=== PATIENT | male | born 1930 | race Caucasian/White ===

== ENCOUNTER 2018-08-23 08:09 | Emergency (ER) | payer MEDICARE ==
--- OUTSIDE RECORDS SUMMARY | 2018-08-23 08:20 | XMS REPORT | Continuity of Care Document ---
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 David Garcia MD Primary Care Physician Unavailable Payers Type Date Identification Numbers Payment Provider Subscriber Effective: Policy Number: [id number] [employer] Options Maximo Berrios JR 2007 Medicare PayID: [id number] [address] [address] [place] [address] Advance Directives Description No Information Available Problems Date Description Provider Status Onset: 06/02/2011 Coronary arteriosclerosis Todd Field M.D., Active FACC Onset: 06/02/2011 Hyperlipidemia Todd Field M.D., Active FACC Onset: 06/02/2011 Benign essential hypertension Todd Field M.D., Active FACC Onset: 06/02/2011 Preoperative cardiovascular Todd Field M.D., Active examination FACC Onset: 06/02/2011 Conduction disorder of the heart Todd Field M.D. , Active FACC Onset: 11/03/2011 Low blood pressure Todd Field M.D., Active FACC Onset: 11/03/2011 Peripheral vascular disease Todd Field M.D., Active FACC Onset: 11/08/2012 Left bundle branch block Todd Field M.D., Active FACC Onset: 06/26/2014 Atrial flutter Todd Field M.D., Active FACC Onset: 07/11/2014 Primary cardiomyopathy Todd Field M.D., Active FACC Onset: 07/11/2014 Mitral valve disorder Todd Field M.D., Active FACC Onset: 07/11/2014 Aneurysm of thoracic aorta Todd Field M.D., Active FACC Onset: 09/12/2014 Impaired renal function disorder Todd Field M.D. 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 Social History Type Date Description Comments Sex Unknown Marital Status Lives With Pamela Diet 2000mg Sodium, Low Fat, Low Cholesterol Occupation Retired Tobacco Use Start: Unknown End: Quit after smoking many Unknown years. Smoking Status Reviewed: 04/24/18 Quit after smoking many years. ETOH Use Rarely consumes alcohol Tobacco Use Start: Unknown Patient is a current smoker, smokes every day Exercise Type/Frequency Does not exercise Allergies, Adverse Reactions, Alerts Date Description Reaction Status Severity Comments 04/20/2011 NKDA Active 09/11/2009 NKDA Inactive 04/06/2010 Metoprolol Inactive severe bradycardia Medications Medication Date Status Form Strength Qnty SIG Indications Ordering Provider Eliquis 07/27/ Active Tablets 5mg 60tab 1 tab by I42.0 Krishan, 2017 s mouth twice Lynsey a day Bran MSN, MACHINE ICER Entresto 03/09/ Active Tablets 24-26mg 180ta Take One I42.0 Rashida 2016 bs Tablet By Todd Mouth Twice M., MLyndaDLynda, A Day [facility] Simvastatin 07/04/ Active Tablets 20mg 90tab Take One Rashida 2013 s Tablet By Todd Mouth Every M., MLyndaD., Day [facility] Proair HFA / Active Aerosol 108(90Bas 1unit 2 puffs q4h Unknown 0000 e) s prn mcg/Act Anoro Ellipta / Active Aerosol 62.5-25mc take one Unknown 0000 g/Inh puff once daily. Albuterol / Active Nebulizer (2.5mg/3M Use 1 Vial Unknown Sulfate 0000 L) 0.083% Via Nebulizer Every 4 Hours as Needed Pantoprazole / Active Tablets DR 40mg Take One Unknown Sodium 0000 Tablet By Mouth Twice A Day For 1 Week Then Once Daily Furosemide / Active Tablets 20mg Take Two Unknown 0000 Tablets By Mouth Every Day Vitamin B-12 / Active Liquid 1000mcg/1 15 Unknown 0000 5ML milliliters by mouth every day Amiodarone HCL 11/01/ Hx Tablets 200mg 90tab 1 by mouth I42.0 Rashida 2017 - s every day , Todd 04/24/ Daisy Mejia, 2017 [facility] Ativan 09/26/ Hx Tablets 0.5mg 30tab 1 tablet F51.02 Krishan, 2017 s under the Lynsey tongue as Bran needed at , MSN, night as CATHERINE needed for sleep. Prednisone 03/09/ Hx Tablets 20mg 7tabs 1 tab by M54.6 Krishan 2016 mouth every Lynsey day Bran , MARIOLA, MACHINE ICER Entresto 07/16/ Hx Tablets 24-26mg 180ta take one I42.0 Rashida 2015 - bs tablet by Todd 03/09/ mouth twice M. MAlva, 2016 a day [facility] Ativan 12/16/ Hx Tablets 1mg 30tab 1 tab by F51.02 Krishan, 2015 s mouth every Lynsey night as Bran needed , MSN, MACHINE ICER Furosemide 08/11/ Hx Tablets 40mg 90tab 1 by mouth I50.21 Nickerson, 2014 s everyday as Lynsey needed -- to Bran be taken , MSN, with MACHINE ICER potassium 20meq. Klor-Con M20 08/11/ Hx Tablets ER 20Meq 90tab 1 by mouth I50.21 Nickerson, 2014 s every day Lynseymert Sotomayor , MSN, MACHINE ICER Ativan 08/11/ Hx Tablets 0.5mg 30tab 1 tab by F51.02 Nickerson, 2014 - s mouth every Lynsey 12/16/ night as Bran 2015 needed , MSN, MACHINE ICER Amiodarone HCL 09/12/ Hx Tablets 200mg 30tab 1 by mouth R55 Rashida 2014 - s every day , Todd 05/19Shauna Mejia M.D., 2014 [facility] I48.92 Amiodarone HCL 07/04/2014 Hx Tablets 200mg 90tabs 2 tablets Rashida, by mouth Todd Mejia, every day Braulio.DLynda, [facility] for 7 days and then 1 tablet per day Metoprolol 09/24/2009 Hx Tablets 25mg 90tabs 1 by mouth I25 Rashida, Tartrate every .10 Todd Mejia, night at M.DLynda, [facility] bedtime Lisinopril-[place] Hx Tablets 10-12.5m 1/2 tab po Rashida chlorothiazide g qd Todd Mejia M.D., [facility] Nitroglycerin Hx Tablets Sub 0.4mg 25tabs 1 tab prn Todd Field M.D., [facility] Singulair Hx Tablets 10mg 1 po qd Todd Field M.D., [facility] Aspirin Hx Tablets 81mg 1 po qd Todd Field M.D., [facility] Flovent HFA Hx Aerosol 110mcg/A 1 puff bid Rashida, maggie Mejia M.D., [facility] Albuterol Hx Nebulizer 17G prn Davidenko, Sulfate Todd Mejia M.D., [facility] Simvastatin - Hx Tablets 40mg 1 po qd Dandreentushar, 07/04/2014 Todd Mejia M.D., [facility] Symbicort Hx Aerosol 160-4.5m 2 puff bid Nickerson, Lynsey cg/Act Bran, MSN, MACHINE ICER Spiriva Hx Capsules 18mcg 1 po qd Nickerson, Lynsey Handihaler Bran, MSN, MACHINE ICER Combivent Hx Aerosol 103-18mc 2 puffs Nickerson, Lynsey g/Act prn Bran, MSN, MACHINE ICER Ventolin HFA Hx Aerosol 108(90Ba prn Unknown se) mcg/ac Advair HFA Hx Aerosol 45-21mcg 2 puff bid Unknown /Act Metoprolol Hx Tablets 25mg 30tabs 1/2 po bid Unknown Tartrate Albuterol Hx Nebulizer (2.5mg/3 2puffs q2h Unknown Sulfate ML) prn 0.083% Bisacodyl Hx Suppository 10mg prn Unknown Vitamin D-3 Hx Tablets 2000Unit po qd Unknown Colace Hx Capsules 100mg 60caps 1 po bid Unknown Hydrocodone/Acet Hx Tablets 5-325mg 60tabs 2 tabs po Unknown aminophen q6h prn Singulair Hx Tablets 10mg 1 po qd Unknown Vitamin B12 Hx Tablets ER 1000mcg po qd Unknown Lisinopril/[place] - Hx Tablets 10-12.5m 30tabs 1/2 tab po 401 Davidenko, chlorothiazide 08/02/2011 g qd .1 Todd Mejia M.D., [facility] 458.9 Proair HFA Hx Aerosol 108(90Base) 2 puffs Unknown mcg/ac q4h prn Plavix - Hx Tablets 75mg 90ta take one Rashida, 07/02/2015 bs tablet by abbi Sotelo M.D., [facility] every day Advair Diskus Hx Aerosol 100-50mcg/Dose 2 puff Unknown twice a day Lisinopril Hx Tablets 5mg 90ta 1 by mouth Unknown bs every day Aspirin Adult Hx Tablets DR 81mg 1 by mouth Unknown Low Dose every day Pantoprazole Hx Tablets DR 40mg 1 by mouth Unknown Sodium every day Lasix Hx Tablets 20mg 2 by mouth Unknown every day Immunizations Description No Information Available Vital Signs Date Vital Result Comment 08/16/2018 10:38am BP Systolic Sitting Left Arm 112 mmHg BP Diastolic Sitting Left Arm 61 mmHg Heart Rate 86 /min Respiratory Rate 19 /min Height 70 inches 5'10" per patient Weight 197.00 lb BMI (Body Mass Index) 28.3 kg/m2 BSA (Body Surface Area) 2.07 m2 [place] body weight in kilograms 75 kg O2 % BldC Oximetry 97 % 05/30/2018 11:37am BP Systolic Sitting Left Arm 100 mmHg BP Diastolic Sitting Left Arm 84 mmHg Heart Rate 79 /min Respiratory Rate 20 /min Weight 197.00 lb O2 % BldC Oximetry 93 % 04/24/2018 11:33am BP Systolic Sitting Left Arm 100 mmHg BP Diastolic Sitting Left Arm 60 mmHg Heart Rate 82 /min Respiratory Rate 22 /min Weight 200.00 lb O2 % BldC Oximetry 92 % 03/24/2018 8:37am Heart Rate 70 /min Weight 203.00 lb O2 % BldC Oximetry 97 % 09/26/2017 1:08pm BP Systolic Sitting Left Arm 128 mmHg BP Diastolic Sitting Left Arm 72 mmHg Heart Rate 75 /min Respiratory Rate 16 /min Height 70 inches 5'10" Weight 202.00 lb BMI (Body Mass Index) 29.0 kg/m2 BSA (Body Surface Area) 2.10 m2 [place] body weight in kilograms 75 kg 05/25/2017 2:29pm BP Systolic Sitting Left Arm 132 mmHg BP Diastolic Sitting Left Arm 60 mmHg Heart Rate 83 /min Respiratory Rate 20 /min Height 70 inches 5'10" Weight 214.00 lb BMI (Body Mass Index) 30.7 kg/m2 BSA (Body Surface Area) 2.15 m2 [place] body weight in kilograms 75 kg O2 % BldC Oximetry 95 % 04/21/2017 2:15pm BP Systolic Sitting Right Arm 118 mmHg BP Diastolic Sitting Right Arm 80 mmHg BP Systolic Sitting Left Arm 114 mmHg BP Diastolic Sitting Left Arm 82 mmHg Heart Rate 80 /min Respiratory Rate 16 /min Height 70 inches 5'10" Weight 214.00 lb BMI (Body Mass Index) 30.7 kg/m2 BSA (Body Surface Area) 2.15 m2 [place] body weight in kilograms 75 kg 03/09/2017 9:50am BP Systolic Sitting Left Arm 90 mmHg BP Diastolic Sitting Left Arm 64 mmHg Heart Rate 80 /min Respiratory Rate 22 /min Height 70 inches 5'10" Weight 220.00 lb BMI (Body Mass Index) 31.6 kg/m2 BSA (Body Surface Area) 2.17 m2 [place] body weight in kilograms 75 kg 08/06/2016 9:56am BP Systolic Sitting Left Arm 110 mmHg BP Diastolic Sitting Left Arm 48 mmHg Heart Rate 62 /min Respiratory Rate 18 /min Height 70 inches 5'10" Weight 233.00 lb BMI (Body Mass Index) 33.4 kg/m2 BSA (Body Surface Area) 2.23 m2 07/16/2016 11:24am BP Systolic Sitting Left Arm 122 mmHg BP Diastolic Sitting Left Arm 75 mmHg Heart Rate 76 /min Respiratory Rate 18 /min Height 70 inches 5'10" Weight 230.00 lb BMI (Body Mass Index) 33.0 kg/m2 BSA (Body Surface Area) 2.22 m2 03/18/2016 9:32am BP Systolic Sitting Left Arm 118 mmHg BP Diastolic Sitting Left Arm 66 mmHg Heart Rate 74 /min Height 70 inches 5'10" Weight 225.00 lb BMI (Body Mass Index) 32.3 kg/m2 BSA (Body Surface Area) 2.19 m2 [place] body weight in kilograms 75 kg 12/17/2015 9:10am BP Systolic Sitting Left Arm 92 mmHg BP Diastolic Sitting Left Arm 60 mmHg Heart Rate 80 /min Respiratory Rate 20 /min Height 70 inches 5'10" Weight 225.00 lb BMI (Body Mass Index) 32.3 kg/m2 BSA (Body Surface Area) 2.19 m2 08/11/2015 12:57pm BP Systolic Sitting Left Arm 122 mmHg BP Diastolic Sitting Left Arm 74 mmHg Heart Rate 80 /min Respiratory Rate 16 /min Height 70 inches 5'10" Weight 226.00 lb BMI (Body Mass Index) 32.4 kg/m2 BSA (Body Surface Area) 2.20 m2 07/18/2015 1:17pm BP Systolic Sitting Right Arm 140 mmHg BP Diastolic Sitting Right Arm 82 mmHg Heart Rate 71 /min Respiratory Rate 16 /min Height 70 inches 5'10" Weight 225.00 lb BMI (Body Mass Index) 32.3 kg/m2 BSA (Body Surface Area) 2.19 m2 05/19/2015 11:24am BP Systolic Sitting Right Arm 130 mmHg BP Diastolic Sitting Right Arm 80 mmHg Heart Rate 72 /min Respiratory Rate 18 /min Height 70 inches 5'10" Weight 227.00 lb BMI (Body Mass Index) 32.6 kg/m2 BSA (Body Surface Area) 2.20 m2 04/11/2015 11:00am BP Systolic Sitting Right Arm 106 mmHg BP Diastolic Sitting Right Arm 82 mmHg Heart Rate 76 /min Respiratory Rate 16 /min Height 70 inches 5'10" Weight 227.00 lb BMI (Body Mass Index) 32.6 kg/m2 BSA (Body Surface Area) 2.20 m2 04/04/2015 9:37am BP Systolic Sitting Right Arm 122 mmHg BP Diastolic Sitting Right Arm 80 mmHg Heart Rate 66 /min Respiratory Rate 20 /min Height 70 inches 5'10" Weight 230.00 lb BMI (Body Mass Index) 33.0 kg/m2 BSA (Body Surface Area) 2.22 m2 11/28/2014 9:17am BP Systolic Sitting Right Arm 148 mmHg BP Diastolic Sitting Right Arm 80 mmHg Heart Rate 68 /min Respiratory Rate 24 /min Height 70 inches 5'10" Weight 240.00 lb BMI (Body Mass Index) 34.4 kg/m2 BSA (Body Surface Area) 2.26 m2 09/12/2014 9:20am BP Systolic Sitting Right Arm 140 mmHg BP Diastolic Sitting Right Arm 60 mmHg Heart Rate 60 /min Respiratory Rate 24 /min Height 70 inches 5'10" Weight 239.00 lb BMI (Body Mass Index) 34.3 kg/m2 BSA (Body Surface Area) 2.25 m2 07/11/2014 3:02pm BP Systolic Sitting Right Arm 116 mmHg BP Diastolic Sitting Right Arm 72 mmHg Heart Rate 78 /min Respiratory Rate 16 /min Height 69 inches 5'9" Weight 240.00 lb BMI (Body Mass Index) 35.4 kg/m2 BSA (Body Surface Area) 2.23 m2 06/26/2014 2:28pm BP Systolic Sitting Right Arm 106 mmHg BP Diastolic Sitting Right Arm 68 mmHg Heart Rate 78 /min Respiratory Rate 18 /min Height 69 inches 5'9" Weight 241.00 lb BMI (Body Mass Index) 35.6 kg/m2 BSA (Body Surface Area) 2.24 m2 05/30/2014 3:39pm BP Systolic Sitting Right Arm 132 mmHg BP Diastolic Sitting Right Arm 82 mmHg Heart Rate 83 /min Respiratory Rate 16 /min Height 69 inches 5'9" Weight 243.00 lb BMI (Body Mass Index) 35.9 kg/m2 BSA (Body Surface Area) 2.24 m2 05/02/2013 11:25am BP Systolic Sitting Right Arm 166 mmHg BP Diastolic Sitting Right Arm 86 mmHg Heart Rate 60 /min Respiratory Rate 16 /min Height 69 inches 5'9" Weight 244.00 lb BMI (Body Mass Index) 36.0 kg/m2 BSA (Body Surface Area) 2.25 m2 11/08/2012 11:15am BP Systolic Sitting Right Arm 152 mmHg BP Diastolic Sitting Right Arm 90 mmHg Heart Rate 55 /min Respiratory Rate 20 /min Height 69 inches 5'9" Weight 246.00 lb BMI (Body Mass Index) 36.3 kg/m2 BSA (Body Surface Area) 2.26 m2 05/08/2012 8:41am BP Systolic Sitting Left Arm 118 mmHg BP Diastolic Sitting Left Arm 64 mmHg Heart Rate 54 /min Respiratory Rate 20 /min Height 69 inches 5'9" Weight 245.00 lb BMI (Body Mass Index) 36.2 kg/m2 11/03/2011 10:51am BP Systolic Sitting Right Arm 138 mmHg BP Diastolic Sitting Right Arm 86 mmHg Heart Rate 68 /min Respiratory Rate 20 /min Height 69 inches 5'9" Weight 246.00 lb BMI (Body Mass Index) 36.3 kg/m2 08/02/2011 1:06pm BP Systolic Sitting Right Arm 80 mmHg BP Diastolic Sitting Right Arm 54 mmHg Heart Rate 52 /min regular Respiratory Rate 20 /min Height 69 inches 5'9" Weight 247.00 lb BMI (Body Mass Index) 36.5 kg/m2 06/02/2011 2:37pm BP Systolic Sitting Right Arm 126 mmHg BP Diastolic Sitting Right Arm 66 mmHg Heart Rate 52 /min Respiratory Rate 18 /min Height 69 inches 5'9" Weight 258.00 lb BMI (Body Mass Index) 38.1 kg/m2 04/20/2011 10:49am BP Systolic Sitting Right Arm 126 mmHg BP Diastolic Sitting Right Arm 84 mmHg Heart Rate 72 /min regular Respiratory Rate 20 /min Height 69 inches 5'9" Weight 253.00 lb BMI (Body Mass Index) 37.4 kg/m2 10/06/2010 2:38pm BP Systolic Sitting Right Arm 118 mmHg BP Diastolic Sitting Right Arm 66 mmHg Heart Rate 62 /min Respiratory Rate 16 /min Height 69 inches 5'9" Weight 248.00 lb BMI (Body Mass Index) 36.6 kg/m2 04/06/2010 9:15am Heart Rate 76 /min Regular Respiratory Rate 18 /min Weight 238.00 lb 09/24/2009 11:37am Heart Rate 56 /min Irregular Respiratory Rate 16 /min Weight 247.00 lb Results Test Date Facility Test Result H/L Range Note Laboratory test 07/23/2016 [facility] Magnesium 2.1 mg/dL N 1.8-2.4 1 [address] [place] [address] [phone] Basic Metabolic 07/23/2016 [facility] Glucose 102 mg/dL N 74-106 Panel [address] [place] [address] [phone] BUN 23 mg/dL High 7-18 Creatinine 1.4 mg/dL High 0.6-1.3 Glom Filtration Rate, Estimate 51 mL/min N >60 If >60 mL/min N >60 2 BUN/Creat 16.4 ratio N Sodium 139 mmol/L N 136-145 Potassium 4.3 mmol/L N 3.5-5.1 Chloride 102 mmol/L N 98-107 Carbon Dioxide 32 mmol/L N 21-32 Anion Gap 5 mEq/L Low 8-16 Calcium 8.8 mg/dL N 8.5-10.1 CBC W/Automated Diff 12/17/2015 [facility] White Blood 3.5 K/uL 3.4-10.5 [address] [facility] [place] [address] [phone] Red Blood Count 4.88 M/uL 4.20-5.80 Hemoglobin 14.9 gm/dL 12.8-17.0 Hematocrit 45.0 % 38.0-48.0 Mean Cell Volume 92.2 fl 80.0-96.0 Mean Corpuscular HGB 30.5 pg 27.0-33.0 Mean Corpuscular HGB Conc 33.1 g/dL 31.7-36.0 Platelet Count 105 K/uL Low 150-400 Red Cell Distri Width SD 51.0 fl 36-51 Red Cell Distri Width %CV 15.6 % 11.6-15.8 Mean Platelet Volume 10.8 fL High 6.6-10.6 Neut% 59.4 % 33.0-73.0 Lymph % 31.1 % 17.0-56.0 Lee % 8.6 % 0.0-10.0 Eo% 0.9 % 0.0-5.0 Bas% 0.0 % Low 0.1-1.0 Neut# 2.08 K/uL 1.8-7.0 Lymph # 1.09 K/uL Low 1.8-7.0 Lee # 0.30 K/uL 0.0-0.8 Eos # 0.03 K/uL 0.0-0.5 Baso # 0.00 K/uL Low 0.1-0.2 Laboratory test 12/17/2015 [facility] Magnesium 2.5 mg/dL High 1.8-2.4 finding [address] [place] [address] [phone] Basic Metabolic 12/17/2015 [facility] Glucose 85 mg/dL 74-106 Panel [address] [place] [address] [phone] BUN 25 mg/dL High 7-18 Creatinine 1.4 mg/dL High 0.6-1.3 Glom Filtration Rate, Estimate 51 mL/min >60 If >60 mL/min >60 3 BUN/Creat 17.8 ratio Sodium 138 mmol/L 136-145 Potassium 4.2 mmol/L 3.5-5.1 Chloride 102 mmol/L 98-107 Carbon Dioxide 33 mmol/L High 21-32 Anion Gap 3 mEq/L Low 8-16 Calcium 9.6 mg/dL 8.5-10.1 Basic Metabolic Panel 08/12/2015 [facility] Glucose 94 mg/dL 74-106 [address] [place] [address] [phone] BUN 19 mg/dL High 7-18 Creatinine 1.4 mg/dL High 0.6-1.3 Glom Filtration Rate, Estimate 51 mL/min >60 If >60 mL/min >60 4 BUN/Creat 13.5 ratio Sodium 139 mmol/L 136-145 Potassium 4.2 mmol/L 3.5-5.1 Chloride 103 mmol/L 98-107 Carbon Dioxide 32 mmol/L 21-32 Anion Gap 4 mEq/L Low 8-16 Calcium 9.6 mg/dL 8.5-10.1 Laboratory test finding 08/12/2015 [facility] Magnesium 2.2 mg/dL 1.8-2.4 [address] [place] [address] [phone] TSH Reflex FT4 and/or FT3 1.81 uIU/mL 0.36-3.74 5 Basic Metabolic Panel 07/19/2015 [facility] Glucose 99 mg/dL 74-106 [address] [place] [address] [phone] BUN 19 mg/dL High 7-18 Creatinine 1.3 mg/dL 0.6-1.3 Glom Filtration Rate, Estimate 56 mL/min >60 If >60 mL/min >60 6 BUN/Creat 14.6 ratio Sodium 140 mmol/L 136-145 Potassium 3.9 mmol/L 3.5-5.1 Chloride 106 mmol/L 98-107 Carbon Dioxide 30 mmol/L 21-32 Anion Gap 4 mEq/L Low 8-16 Calcium 9.3 mg/dL 8.5-10.1 Laboratory test finding 07/19/2015 [facility] Magnesium 2.1 mg/dL 1.8-2.4 [address] [place] [address] [phone] Basic Metabolic Panel 05/10/2012 [facility] Glucose 91 mg/dL 76-115 [address] [place] [address] [phone] BUN 15 mg/dL 5-23 Creatinine 1.4 mg/dL 0.5-1.4 Glom Filtration Rate, Estimate 52 mL/min >60 If >60 mL/min >60 7 BUN/Creat 10.7 ratio Sodium 141 mmol/L 136-145 Potassium 4.1 mmol/L 3.5-5.1 Chloride 107 mmol/L 98-107 Carbon Dioxide 27 mEq/L 18-29 Anion Gap 11 mEq/L 8-16 Calcium 9.2 mg/dL 8.5-10.1 CBC W/Automated Diff 05/10/2012 [facility] White Blood 3.6 K/uL 3.4-10.[address] [place] [address] [phone] Red Blood Count 4.91 M/uL 4.20-5.80 Hemoglobin 15.2 gm/dL 12.8-17.0 Hematocrit 45.3 % 38.0-48.0 Mean Cell Volume 92.3 fl 80.0-96.0 Mean Corpuscular HGB 31.0 pg 27.0-33.0 Mean Corpuscular HGB Conc 33.6 g/dL 31.7-36.0 Platelet Count 135 K/uL Low 150-400 Red Cell Distri Width SD 46.2 fl 36-51 Red Cell Distri Width %CV 13.9 % 11.6-15.8 Mean Platelet Volume 10.7 fL High 6.6-10.6 Neut% 64.9 % 33.0-73.0 Lymph % 27.7 % 17.0-56.0 Lee % 6.0 % 0.0-10.0 Eo% 1.4 % 0.0-5.0 Bas% 0.0 % Low 0.1-1.0 Neut# 2.36 K/uL 1.8-7.0 Lymph # 1.01 K/uL Low 1.2-4.0 Lee # 0.22 K/uL 0.0-0.6 Eos # 0.05 K/uL 0.0-0.5 Baso # 0.00 K/uL Low 0.1-0.2 LDL Cholesterol 05/10/2012 [facility] Cholesterol 128 mg/dL 120-200 Profile [address] [place] [address] [phone] Triglycerides 123 mg/dL 16-231 HDL Cholesterol 37 mg/dL 29-83 LDL-Cholesterol 66 mg/dL 62-185 Liver Function Tests 05/10/2012 [facility] Total Protein 7.3 g/dL 6.3-8.0 [address] [place] [address] [phone] Albumin 3.8 g/dL 3.5-5.0 Globulin 3.5 g/dL 1.9-4.3 Alb/Glob 1.1 ratio Bilirubin,Total 0.6 mg/dL 0.2-1.2 Bilirubin,Direct 0.2 mg/dL 0.1-0.4 Bilirubin,Indirect 0.4 mg/dL 0.0-0.9 Sgot/Ast 13 U/L Low 16-40 SGPT/Alt 21 U/L Low 30-65 Alkaline Phosphatase 48 U/L Low 50-136 Laboratory test 05/10/2012 [facility] Thyroid Stim 2.02 uIU/mL 0.49-4.67 finding [address] [place] [address] [phone] 1 I42.0 2 Note: Persistent reduction for 3 months or more in an eGFR <60 mL/min/1.73 m2 defines CKD. Patients with eGFR values >/=60 mL/min/1.73 m2 may also have CKD if evidence of persistent proteinuria is present. The original MDRD equation for estimated GFR is not valid for patients less than 18 years of age. Additional information may be found at [email or web address]. 3 Note: Persistent reduction for 3 months or more in an eGFR <60 mL/min/1.73 m2 defines CKD. Patients with eGFR values >/=60 mL/min/1.73 m2 may also have CKD if evidence of persistent proteinuria is present. The original MDRD equation for estimated GFR is not valid for patients less than 18 years of age. Additional information may be found at [email or web address]. 4 Note: Persistent reduction for 3 months or more in an eGFR <60 mL/min/1.73 m2 defines CKD. Patients with eGFR values >/=60 mL/min/1.73 m2 may also have CKD if evidence of persistent proteinuria is present. The original MDRD equation for estimated GFR is not valid for patients less than 18 years of age. Additional information may be found at [email or web address]. 5 QUERY: Reflex add FT3? Y QUERY: Reflex add FT4? Y 6 Note: Persistent reduction for 3 months or more in an eGFR <60 mL/min/1.73 m2 defines CKD. Patients with eGFR values >/=60 mL/min/1.73 m2 may also have CKD if evidence of persistent proteinuria is present. The original MDRD equation for estimated GFR is not valid for patients less than 18 years of age. Additional information may be found at [email or web address]. 7 Note: Persistent reduction for 3 months or more in an eGFR <60 mL/min/1.73 m2 defines CKD. Patients with eGFR values >/=60 mL/min/1.73 m2 may also have CKD if evidence of persistent proteinuria is present. The original MDRD equation for estimated GFR is not valid for patients less than 18 years of age. Additional information may be found at [email or web address]. Procedures Date Code Description Status 08/16/2018 95103 Cardioversion/Defibril. Multiple Lead Pacemaker Completed 08/08/2018 73677 Echocardiogram Complete Completed 05/30/2018 59862 Dual Pacemaker Programming Anayisis, Review And Report Completed 05/30/2018 65213 Dual Pacemaker Programming Anayisis, Review And Report Completed 05/30/2018 94074 EKG-Tracing And Report Completed 04/24/2018 23243 Dual Pacemaker Programming Anayisis, Review And Report Completed 04/24/2018 09055 EKG-Tracing And Report Completed 03/24/2018 63899 Dual Pacemaker Programming Anayisis, Review And Report Completed 03/24/2018 80835 Dual Pacemaker Programming Anayisis, Review And Report Completed 03/24/2018 57497 EKG-Tracing And Report Completed 11/01/2017 06464 Cardioversion/Defibril. Multiple Lead Pacemaker Completed 04/26/2017 30468 Dual Pacemaker Programming Anayisis, Review And Report Completed 04/21/2017 65356 Cardioversion/Defibril. Multiple Lead Pacemaker Completed 08/06/2016 29630 EKG-Tracing And Report Completed 07/16/2016 87590 Echocardiogram Complete Completed 06/06/2016 46374 Echocardiogram Complete Completed 08/05/2015 97323 Echocardiogram Complete Completed 07/18/2015 61695 Cardioversion/Defibril. Multiple Lead Pacemaker Completed 07/18/2015 69149 EKG-Tracing And Report Completed 04/11/2015 14849 Echocardiogram Complete Completed 04/11/2015 52839 Event Monitor Inter/Review Only Completed 04/04/2015 58378 EKG-Tracing And Report Completed 11/28/2014 51311 EKG-Tracing And Report Completed 11/07/2014 00417 Echocardiogram Complete Completed 07/11/2014 44317 EKG-Tracing And Report Completed 07/04/2014 12965 Doppler ECHO Color Flow Mapping Completed 07/04/2014 37545 Doppler Echocardiogram Complete Completed 07/04/2014 03954 Transesophageal Echocardiogram Completed 07/04/2014 41198 EKG Interpretation And Report Only Completed 07/04/2014 01846 Cardioversion External Completed 06/02/2014 23664 Echocardiogram Complete Completed 05/31/2014 28246 Stress Test Interpre And Report Only Completed 05/31/2014 55904 Stress Test Physician Super Only Completed 05/31/2014 86365 Stress Test Physician Super Only Completed 05/31/2014 20991 Myocardial Imaging Tomographic Multiple Study AT Rest Or Completed Stress 05/30/2014 26521 EKG-Tracing And Report Completed 04/18/2013 36518 Anesthesia, Transurethral Surgery Completed 04/12/2013 28602 EKG Interpretation And Report Only Completed 11/08/2012 04817 Holter Monitor 24HR Inter/Report Completed 11/08/2012 62554 EKG-Tracing And Report Completed 06/02/2011 00797 EKG-Tracing And Report Completed 10/06/2010 47189 EKG-Tracing And Report Completed 05/05/2010 10283 Stress Test Interpre And Report Only Completed 05/05/2010 65821 Stress Test Physician Super Only Completed 05/05/2010 23357 Myocardial Imaging Tomographic Multiple Study AT Rest Or Completed Stress 02/17/2010 58762 EKG Interpretation And Report Only Completed 09/24/2009 77896 EKG-Tracing And Report Completed 04/08/2008 31691 EKG-Tracing And Report Completed Encounters Type Date Location Provider Dx Diagnosis Office Visit 08/16/2018 Cardiology Office Lynsey Nickerson I42.0 Dilated 10:40a MARIOLA Sotomayor, cardiomyopathy MACHINE ICER I48.91 Unspecified atrial fibrillation I47.2 Ventricular tachycardia 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, second degree I71.4 Abdominal aortic aneurysm, without rupture Z95.810 Presence of automatic (implantable) cardiac defibrillator Office Visit 05/30/2018 Cardiology Lynsey Nickerson I42.0 Dilated 11:40a Office MARIOLA Sotomayor, cardiomyopathy MACHINE ICER 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, second degree I48.2 Chronic atrial fibrillation I25.10 Athscl heart disease of [place] coronary artery w/o ang pctrs I47.2 Ventricular tachycardia I71.2 Thoracic aortic aneurysm, without rupture Z95.810 Presence of automatic (implantable) cardiac defibrillator I71.4 Abdominal aortic aneurysm, without rupture Office Visit 04/24/2018 Cardiology Lynsey Nickerson I42.0 Dilated 11:40a Office MARIOLA Sotomayor, cardiomyopathy MACHINE ICER 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, second degree I71.2 Thoracic aortic aneurysm, without rupture I48.91 Unspecified atrial fibrillation I71.4 Abdominal aortic aneurysm, without rupture Z95.810 Presence of automatic (implantable) cardiac defibrillator Office Visit 03/24/2018 8:20a Cardiology Office Lesli, I71.4 Abdominal aortic Marlyss B., PA aneurysm, without rupture I71.2 Thoracic aortic aneurysm, without rupture Z95.810 Presence of automatic (implantable) cardiac defibrillator 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 I48.91 Unspecified atrial fibrillation Office Visit 09/26/2017 Cardiology Lynsey Nickerson I42.0 Dilated 1:00p Office MARIOLA Sotomayor, cardiomyopathy MACHINE ICER I71.2 Thoracic aortic aneurysm, without rupture I25.10 Athscl heart disease of [place] coronary artery w/o ang pctrs I34.0 Nonrheumatic mitral (valve) insufficiency 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, second degree I71.4 Abdominal aortic aneurysm, without rupture I48.92 Unspecified atrial flutter Z95.810 Presence of automatic (implantable) cardiac defibrillator F51.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 Office Visit 05/25/2017 Cardiology Lynsey Nickerson I42.0 Dilated 2:20p Office MARIOLA Sotomayor, cardiomyopathy MACHINE ICER I71.2 Thoracic aortic aneurysm, without rupture I25.10 Athscl heart disease of [place] coronary artery w/o ang pctrs I34.0 Nonrheumatic mitral (valve) insufficiency 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, second degree I71.4 Abdominal aortic aneurysm, without rupture I48.92 Unspecified atrial flutter Z95.810 Presence of automatic (implantable) cardiac defibrillator Office Visit 04/21/2017 Cardiology Lesli, Z01.810 Encounter for 2:00p Office Marlyss B., preprocedural PA cardiovascular examination I25.10 Athscl heart disease of [place] coronary artery w/o ang pctrs I71.4 Abdominal aortic aneurysm, without rupture I71.2 Thoracic aortic aneurysm, without rupture I34.0 Nonrheumatic mitral (valve) insufficiency 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, 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 I47.2 Ventricular tachycardia I48.92 Unspecified atrial flutter Office Visit 03/09/2017 9:40a Cardiology Office Lynsye Nickerson M54.6 Pain in Bran, MARIOLA, thoracic spine MACHINE ICER 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, second degree I48.92 Unspecified atrial flutter I71.4 Abdominal aortic aneurysm, without rupture I71.2 Thoracic aortic aneurysm, without rupture Office Visit 08/06/2016 Cardiology Todd Field I42.0 Dilated 10:00a Office Daisy Mejia, [facility] cardiomyopathy 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, second degree I48.92 Unspecified atrial flutter I71.4 Abdominal aortic aneurysm, without rupture Office Visit 07/16/2016 Cardiology Lynsey Nickerson I42.0 Dilated 11:40a Office MARIOLA Sotomayor, cardiomyopathy MACHINE ICER 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, second degree I48.92 Unspecified atrial flutter I71.2 Thoracic aortic aneurysm, without rupture I34.0 Nonrheumatic mitral (valve) insufficiency 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, [facility] Office Visit 03/18/2016 Cardiology Todd Field I42.0 Dilated 9:20a Office Daisy Mejia, [facility] cardiomyopathy 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, second degree I48.92 Unspecified atrial flutter I71.2 Thoracic aortic aneurysm, without rupture I34.0 Nonrheumatic mitral (valve) insufficiency Office Visit 12/17/2015 Cardiology Lynsey Nickerson I42.0 Dilated 9:00a Office MARIOLA Sotomayor, cardiomyopathy MACHINE ICER 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, second degree I48.92 Unspecified atrial flutter I71.2 Thoracic aortic aneurysm, without rupture R00.1 Bradycardia, unspecified 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.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 Office Visit 08/11/2015 Cardiology Lynsey Nickerson I42.0 Dilated 1:00p Office MARIOLA Sotomayor, cardiomyopathy MACHINE ICER I50.21 Acute systolic (congestive) heart failure 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, second degree I48.92 Unspecified atrial flutter I71.2 Thoracic aortic aneurysm, without rupture R00.1 Bradycardia, unspecified 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.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 Office Visit 07/18/2015 Cardiology Todd Field I42.0 Dilated 1:00p Office Daisy Mejia, [facility] cardiomyopathy 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, second degree I71.2 Thoracic aortic aneurysm, without rupture I25.10 Athscl heart disease of [place] coronary artery w/o ang pctrs Office Visit 06/23/2015 Cardiology Marv Roth, I44.1 Atrioventricular 9:20a Office MD block, second degree Office Visit 05/19/2015 Cardiology Lynsey Nickerson R55 Syncope and collapse 11:20a Office MARIOLA Sotomayor, MACHINE ICER I42.0 Dilated cardiomyopathy I48.92 Unspecified atrial flutter I34.0 Nonrheumatic mitral (valve) insufficiency I71.2 Thoracic aortic aneurysm, without rupture 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, unsp I71.4 Abdominal aortic aneurysm, without rupture I25.10 Athscl heart disease of [place] coronary artery w/o ang pctrs Office Visit 04/11/2015 11:00a Cardiology Office Lynsey Nickerson 780.2 Syncope & MARIOLA Sotomayor, Collapse MACHINE ICER 427.32 Atrial Flutter 425.4 Cardiomyopathy Other Prim 424.0 Mitral Valve Disorder 441.2 Aneurysm Thoracic W/O Rupture 588.9 Renal Function Impairment Disorders Unspec 441.4 Aneurysm Abdominal W/O Rupture Office Visit 04/04/2015 9:30a Cardiology Office Todd Field 427.32 Atrial Flutter Daisy Mejia, FACC 414.01 Coronary Atherosclerosis [place] 425.4 Cardiomyopathy Other Prim 424.0 Mitral Valve Disorder 441.2 Aneurysm Thoracic W/O Rupture 441.4 Aneurysm Abdominal W/O Rupture Office Visit 11/28/2014 9:00a Cardiology Office Lynsey Nickerson 424.0 Mitral Valve Bran, MARIOLA, Disorder MACHINE ICER 414.01 Coronary Atherosclerosis [place] 427.32 Atrial Flutter 425.4 Cardiomyopathy Other Prim 441.2 Aneurysm Thoracic W/O Rupture 588.9 Renal Function Impairment Disorders Unspec Office Visit 09/12/2014 Cardiology Rashida 414.01 Coronary 9:10a Office Todd Mejia M.D., Atherosclerosis FACC [place] 427.32 Atrial Flutter 424.0 Mitral Valve Disorder 425.4 Cardiomyopathy Other Prim 441.2 Aneurysm Thoracic W/O Rupture 588.9 Renal Function Impairment Disorders Unspec Office Visit 07/11/2014 Cardiology Rashida V72.81 Examination 2:40p Office Todd Mejia M.D., Preoperative FACC Cardiovascular 414.01 Coronary Atherosclerosis [place] 427.32 Atrial Flutter 425.4 Cardiomyopathy Other Prim 424.0 Mitral Valve Disorder 441.2 Aneurysm Thoracic W/O Rupture Office Visit 06/26/2014 Cardiology Rashida 414.01 Coronary 2:20p Office Todd Mejia M.D., Atherosclerosis FACC [place] 427.32 Atrial Flutter V72.81 Examination Preoperative Cardiovascular Office Visit 05/30/2014 Cardiology Rashida V72.81 Examination 3:00p Office Todd Mejia M.D., Preoperative FACC Cardiovascular 401.1 Hypertension Benign 443.9 Peripheral Vascular Disease Unspec Office Visit 05/02/2013 Cardiology Todd Field 401.1 Hypertension 11:20a Office Daisy Mejia, FACC Benign 443.9 Peripheral Vascular Disease Unspec 414.01 Coronary Atherosclerosis [place] Office Visit 11/08/2012 Cardiology Todd Field 427.89 Cardiac 11:20a Office Daisy Mejia, FACC Dysrhythmia Other 426.3 Left Bundle Branch Block Other 401.1 Hypertension Benign 414.01 Coronary Atherosclerosis [place] 443.9 Peripheral Vascular Disease Unspec Office Visit 05/08/2012 Cardiology Lynsey Nickerson 414.01 Coronary 8:50a Office Bran, MARIOLA, Atherosclerosis MACHINE ICER [place] 272.4 Hyperlipidemia Other Unspec 401.1 Hypertension Benign 443.9 Peripheral Vascular Disease Unspec 441.9 Aneurysm Aortic W/O Rupture Unspec Site Office Visit 11/03/2011 11:00a Cardiology Todd Field 458.9 Hypotension Office M., M.D., FACC Unspec 414.01 Coronary Atherosclerosis [place] 272.4 Hyperlipidemia Other Unspec 443.9 Peripheral Vascular Disease Unspec Office Visit 08/02/2011 1:00p Cardiology Lynsey Nickerson 458.9 Hypotension Office Bran, MSN, Unspec MACHINE ICER 780.79 Malaise And Fatigue Other 414.01 Coronary Atherosclerosis [place] 443.9 Peripheral Vascular Disease Unspec 272.4 Hyperlipidemia Other Unspec 441.9 Aneurysm Aortic W/O Rupture Unspec Site Office Visit 06/02/2011 Cardiology Rashida 414.01 Coronary 2:40p Office Todd Mejia M.D., Atherosclerosis FACC [place] 272.4 Hyperlipidemia Other Unspec 401.1 Hypertension Benign V72.81 Examination Preoperative Cardiovascular 427.89 Cardiac Dysrhythmia Other Office Visit 04/20/2011 Cardiology Lynsey Nickerson 414.01 Coronary 10:40a Office Bran, MSN, Atherosclerosis MACHINE ICER [place] 272.4 Hyperlipidemia Other Unspec 401.1 Hypertension Benign 496 COPD Airway Obstruction Chronic Not Class Elsewhere 443.9 Peripheral Vascular Disease Unspec Office Visit 10/06/2010 Cardiology Rashida 414.01 Coronary 2:40p Office Todd Mejia M.D., Atherosclerosis FACC [place] 272.4 Hyperlipidemia Other Unspec 401.1 Hypertension Benign 496 COPD Airway Obstruction Chronic Not Class Elsewhere Office Visit 04/06/2010 Cardiology Lynsey Nickerson 414.01 Coronary 9:10a Office Bran, MSN, Atherosclerosis MACHINE ICER [place] 424.0 Mitral Valve Disorder 272.4 Hyperlipidemia Other Unspec 401.1 Hypertension Benign 441.9 Aneurysm Aortic W/O Rupture Unspec Site Office Visit 09/24/2009 Cardiology Rashida 414.01 Coronary 11:30a Office Todd Mejia M.D., Atherosclerosis FACC [place] 401.1 Hypertension Benign 272.4 Hyperlipidemia Other Unspec Office Visit 09/19/2008 Cardiology Rashida 414.01 Coronary 10:45a Office Todd Mejia M.D., Atherosclerosis FACC [place] 401.1 Hypertension Benign 272.4 Hyperlipidemia Other Unspec Office Visit 04/08/2008 Cardiology Rashida 414.01 Coronary 10:30a Office Todd Mejia M.D., Atherosclerosis FACC [place] 443.9 Peripheral Vascular Disease Unspec 272.4 Hyperlipidemia Other Unspec 401.1 Hypertension Benign Plan of Treatment Future Appointment(s):11/15/2018 9:20 am - Lynsey Nickerson, MSN, MACHINE ICER at Cardiology [id number]/05/2018 9:45 am - Prosper Ballesteros PA at Cardiology [id number]/16/2018 - Lynsey Nickerson, MSN, FNPI42.0 Dilated cardiomyopathyComments:No changes. We discussed the replacement of the device. I do think that he will again benefit fromthe LV lead and ICD. We will need to extract and re-implant the LV lead however as the thresholds are high. He chooses the ICD again over just the bi-V pacer.I48.91 Unspecified atrial fibrillationComments:No changes. Monitor.I47.2 Ventricular tachycardiaComments: Monitor via ICD.I25.10 Atherosclerotic heart disease of resighini coronary artery without angina pectorisComments:Continue with medical management. No changes.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, second degreeComments:Monitor. As above.I71.4 Abdominal aortic aneurysm, without ruptureComments:Monitor.Z95.810 Presence of automatic (implantable) cardiac defibrillatorComments:We will contact Dr. Bustillos to do this the first week in Aug.AllReferral:Evan García MD, Cardiac ElectrophyslgyFollow up:Follow up visit in three months.
[2018-08-23 08:34] VITALS: BP 116/71
--- NOTE | 2018-08-23 09:21 | UC ---
Skin Complaint HPI - HPI Summary HPI Summary: Patient has had a cyst on the back of his neck for some time, the past few days it has been itchy, red and painful The skin has opened - History of Current Complaint Chief Complaint: UCSkin Time Seen by Provider: 08/23/18 08:21 Stated Complaint: POSSIBLE CYST - DRAINING (NECK) Hx Obtained From: Patient Onset/Duration: Gradual Onset, Worse Since - 3 days Skin Exposure Onset/Duration: Days Ago Timing: Constant Onset Severity: Mild Current Severity: Mild Pain Intensity: 0 Location: Discrete Character: Redness, Raised Aggravating Factor(s): Nothing Alleviating Factor(s): Nothing Associated Signs & Symptoms: Positive: Drainage - Allergy/Home Medications Allergies/Adverse Reactions: Allergies Allergy/AdvReac Type Severity Reaction Status Date / Time No Known Allergies Allergy Verified 08/23/18 08:27 Home Medications: Home Medications Albuterol Sulfate [Proventil Hfa] 205 gm IH DAILY 08/23/18 [History Confirmed ] Albuterol inh POWDER (NF) [Proair Respiclick] 1 puff INH DAILY 08/23/18 [ History Confirmed 08/23/18] Apixaban* [Eliquis*] 5 mg PO BID 08/23/18 [History Confirmed 08/23/18] Cyanocobalamin TAB* [Vitamin B12 TAB*] 1,000 mcg PO DAILY 08/23/18 [History Confirmed 08/23/18] Furosemide TAB* [Lasix TAB*] 40 mg PO DAILY 08/23/18 [History Confirmed 08/23/18 ] Pantoprazole TAB (NF) [Protonix TAB (NF)] 40 mg PO DAILY 08/23/18 [History Confirmed 08/23/18] Sacubitril/Valsartan [Entresto 24 mg-26 mg Tablet] 2 each PO DAILY 08/23/18 [ History Confirmed 08/23/18] Simvastatin 20 mg PO DAILY 08/23/18 [History Confirmed 08/23/18] Umeclidin/Vilant 62.5 MDI(NF) [ANORO 62.5/25 Ellipta DEVICE (NF)] 1 inh INH DAILY 08/23/18 [History Confirmed 08/23/18] PMH/Surg Hx/FS Hx/Imm Hx Previously Healthy: Yes Other History Of: Negative For: Anticoagulant Therapy - Surgical History Surgical History: Yes Surgery Procedure, Year, and Place: CARDIAC STENTS X3, AAA REPAIR, ABSCESS REMOVAL FROM MIDSTERUM, PROSTATECTOMY, BLE ANEURYSM REPAIR - Family History Known Family History: Positive: Hypertension - Social History Alcohol Use: None Alcohol Amount: not in past year Substance Use Type: None Smoking Status (MU): Current Every Day Smoker Type: Cigars Amount Used/How Often: 2 per day Length of Time of Smoking/Using Tobacco: 1 yr Have You Smoked in the Last Year: Yes Household Exposure Type: Cigarettes - Immunization History Most Recent Influenza Vaccination: unknown Most Recent Tetanus Shot: 5yrs ago Most Recent Pneumonia Vaccination: dont remember Review of Systems All Other Systems Reviewed And Are Negative: Yes Constitutional: Positive: Negative Skin: Positive: Other - inflammed cyst Eyes: Positive: Negative ENT: Positive: Negative Respiratory: Positive: Negative Cardiovascular: Positive: Negative Gastrointestinal: Positive: Negative Genitourinary: Positive: Negative Motor: Positive: Negative Neurovascular: Positive: Negative Musculoskeletal: Positive: Negative Neurological: Positive: Negative Psychological: Positive: Negative Is Patient Immunocompromised?: No Physical Exam Triage Information Reviewed: Yes Appearance: Well-Appearing, Well-Nourished, Pain Distress Vital Signs: Initial Vital Signs Temp 98.4 F 08/23/18 08:23 Pulse 95 08/23/18 08:23 Resp 22 08/23/18 08:23 BP 116/71 08/23/18 08:23 Pulse Ox 99 08/23/18 08:23 Vital Signs Reviewed: Yes Eye Exam: Normal ENT Exam: Normal Dental Exam: Normal Neck exam: Normal Respiratory Exam: Normal Cardiovascular Exam: Normal Cardiovascular: Positive: RRR, No Murmur, Pulses Normal Bowel Sounds: Positive: Present Musculoskeletal Exam: Normal Neurological Exam: Normal Psychological Exam: Normal Skin: Positive: Significant Lesion(s) - large quater sized raised inflammed sebacious cyst on the back of neck Procedures - Incision and Drainage Right Neck Anesthesia: Other - none Instrument(s): Scalpel Packing: Other - iodoform Course/Dx - Course Course Of Treatment: hx obtained, exam performed ,meds reviewed, I and d Completed, Packed the wound, will return in 2 days for removal of packing. the cyst was removed in its entirety. large cavity remains. placed on abx. - Differential Diagnoses - Skin Complaint Differential Diagnoses: Abscess, Cellulitis - Diagnoses Provider Diagnosis: Sebaceous cyst Discharge - Sign-Out/Discharge Documenting (check all that apply): Patient Departure All imaging exams completed and their final reports reviewed: No Studies - Discharge Plan Condition: Stable Disposition: HOME Prescriptions: Cephalexin CAP* [Keflex CAP*] 500 mg PO BID #14 cap Patient Education Materials: Dermal Cyst Excision (DC) Referrals: David Garcia MD [Primary Care Provider] - Additional Instructions: 1. take the medication as prescribed. 2. Change the bandage once a day or when soiled. 3. FOllow up here or with dr Graves office to remove the packing in two days. - Billing Disposition and Condition Condition: STABLE Disposition: Home - Attestation Statements Provider Attestation: Per institutional requirements, I have reviewed the chart, however, I was not consulted specifically or made aware of this patient by the midlevel provider. I did not personally evaluate, interact with , or disposition this patient.
== END 2018-08-23 09:42 | disposition home or self-care (01) ==
LOC: UCCORT 08:09
DX: L72.3 Sebaceous cyst (principal); F17.210 Nicotine dependence, cigarettes, uncomplicated
CPT/HCPCS: 10060; 99212; G0463

== ENCOUNTER 2018-08-26 13:41 | Emergency (ER) | payer MEDICARE ==
[2018-08-26 14:22] VITALS: BP 110/73
--- NOTE | 2018-08-26 14:28 | UC ---
HPI Wound/Suture Re-check - HPI Summary HPI Summary: patient is here for follow up for wound that had been packed on the back of the neck. He states the packing fell out yesterday. no pain, has been taking antibitoics - History Of Current Complaint Chief Complaint: GILSONkin Stated Complaint: CYST - BACK OF NECK F/U Time Seen by Provider: 08/26/18 14:18 Hx Obtained From: Patient Onset/Duration: Sudden Onset, Gradual Onset, Resolved Severity: Mild Pain Intensity: 0 - Allergies/Home Medications Allergies/Adverse Reactions: Allergies Allergy/AdvReac Type Severity Reaction Status Date / Time No Known Allergies Allergy Verified 08/26/18 14:20 PMH/Surg Hx/FS Hx/Imm Hx Previously Healthy: Yes Cardiovascular History: Cardiac Disease, Pacemaker/ICD Respiratory History: COPD Other History Of: Negative For: Anticoagulant Therapy - Surgical History Surgical History: Yes Surgery Procedure, Year, and Place: CARDIAC STENTS X3, AAA REPAIR, ABSCESS REMOVAL FROM MIDSTERUM, PROSTATECTOMY, BLE ANEURYSM REPAIR - Family History Known Family History: Positive: Hypertension - Social History Alcohol Use: None Alcohol Amount: not in past year Substance Use Type: None Smoking Status (MU): Current Every Day Smoker Type: Cigars Amount Used/How Often: 2 per day Length of Time of Smoking/Using Tobacco: 1 yr Have You Smoked in the Last Year: Yes Household Exposure Type: Cigarettes - Immunization History Most Recent Influenza Vaccination: unknown Most Recent Tetanus Shot: 5yrs ago Most Recent Pneumonia Vaccination: dont remember Review of Systems All Other Systems Reviewed And Are Negative: Yes Constitutional: Positive: Negative Skin: Positive: Other - healing abcess Eyes: Positive: Negative ENT: Positive: Negative Respiratory: Positive: Negative Cardiovascular: Positive: Negative Gastrointestinal: Positive: Negative Genitourinary: Positive: Negative Motor: Positive: Negative Neurovascular: Positive: Negative Musculoskeletal: Positive: Negative Neurological: Positive: Negative Psychological: Positive: Negative Is Patient Immunocompromised?: No Physical Exam Triage Information Reviewed: Yes Appearance: Well-Appearing, No Pain Distress, Well-Nourished Vital Signs: Initial Vital Signs Temp 98.0 F 08/26/18 14:20 Pulse 80 08/26/18 14:20 Resp 18 08/26/18 14:20 BP 110/73 08/26/18 14:20 Pulse Ox 98 08/26/18 14:20 Vital Signs Reviewed: Yes Eye Exam: Normal ENT Exam: Normal Dental Exam: Normal Neck exam: Normal Respiratory: Positive: Chest non-tender, Normal breath sounds, No respiratory distress, Wheezing Cardiovascular Exam: Normal Cardiovascular: Positive: RRR, No Murmur, Pulses Normal Abdominal Exam: Normal Abdomen Description: Positive: Nontender, No Organomegaly, Soft Musculoskeletal Exam: Normal Neurological Exam: Normal Psychological Exam: Normal Skin: Positive: Other - helaing abcess to the back of the neck Course/Dx - Course Course Of Treatment: hx obtained, exam performed ,meds reviewed, packing had fallen out yesterday, sight is asymptomatic, small scab over the opening, non tender, patient has been taking the antibiotic - Differential Dx - Laceration/Wound Differential Diagnoses: Dehiscence, Healing Wound - Diagnosis Provider Diagnosis: Encounter for wound re-check Discharge - Sign-Out/Discharge Documenting (check all that apply): Patient Departure All imaging exams completed and their final reports reviewed: Yes - Discharge Plan Condition: Stable Disposition: HOME Referrals: David Garcia MD [Primary Care Provider] - Additional Instructions: 1. finish the course of antibiotics 2. Your wound site looks good, there is a small scab over the incision site. Continue to cover with the non stick dressing for the next few days 3. Follow up if you develop any increased pain, or other symtpoms - Billing Disposition and Condition Condition: STABLE Disposition: Home
== END 2018-08-26 14:37 | disposition home or self-care (01) ==
LOC: UCCORT 13:41
DX: L72.9 Follicular cyst of the skin and subcutaneous tissue, unspecified (principal); Z51.89 Encounter for other specified aftercare; Z95.811 Presence of heart assist device; F17.210 Nicotine dependence, cigarettes, uncomplicated
CPT/HCPCS: 99211; G0463

== ENCOUNTER 2019-06-30 09:18 | Emergency (ER) | payer MEDICARE ==
[2019-06-30 09:57] VITALS: BP 100/56
--- NOTE | 2019-06-30 10:19 | UC ---
Skin Complaint HPI - HPI Summary HPI Summary: Per investor relations analyst: "Pt here for check of cyst removal from upper back, 2 cysts were removed " -procedure was done in [place] by pharmaceutical analyst he reports. sutres were recomved adn he was told it was benign. -he came in today bc he saw blood on pajamas. he cannot see the wound -denies fever/chills. no known drainage. -has h/o COPD, wears O2 as needed and continues to smoke 2 cigars per day. Insists that he is breathing at his baseline and not SOB. His BP is always on the low side and denies being lightheaded or dizzy unless he gets up too quickly. - History of Current Complaint Chief Complaint: [employer]kin Time Seen by Provider: 06/30/19 10:02 Stated Complaint: RECHECK BACK ABSCESSES Pain Intensity: 3 - Allergy/Home Medications Allergies/Adverse Reactions: Allergies Allergy/AdvReac Type Severity Reaction Status Date / Time No Known Allergies Allergy Verified 06/30/19 09:37 Home Medications: Home Medications Proair Hfa 90mcg 2 puff INH SEE INSTRUCTIONS PRN 06/30/19 [History Confirmed 10/17] PMH/Surg Hx/FS Hx/Imm Hx Previously Healthy: Yes Cardiovascular History: Congestive Heart Failure Respiratory History: COPD Other History Of: Negative For: Anticoagulant Therapy - Surgical History Surgical History: Yes Surgery Procedure, Year, and Place: CARDIAC STENTS X3, AAA REPAIR, ABSCESS REMOVAL FROM MIDSTERUM, PROSTATECTOMY, BLE ANEURYSM REPAIR (3 aneurysm repairs) - Family History Known Family History: Positive: Hypertension - Social History Alcohol Use: None Alcohol Amount: not in past year Substance Use Type: None Smoking Status (MU): Current Every Day Smoker Type: Cigars Amount Used/How Often: 2 per day Length of Time of Smoking/Using Tobacco: 1 yr Have You Smoked in the Last Year: Yes Household Exposure Type: Cigarettes - Immunization History Most Recent Influenza Vaccination: unknown Most Recent Tetanus Shot: 5yrs ago Most Recent Pneumonia Vaccination: dont remember Review of Systems All Other Systems Reviewed And Are Negative: Yes Constitutional: Negative: Fever, Chills Skin: Positive: Other - see above Eyes: Positive: Negative ENT: Positive: Negative Respiratory: Positive: Negative - at baseline. Cardiovascular: Positive: Negative Gastrointestinal: Positive: Negative Genitourinary: Positive: Negative Motor: Positive: Negative Neurovascular: Positive: Negative Musculoskeletal: Positive: Negative Neurological: Positive: Negative Psychological: Positive: Negative Physical Exam Triage Information Reviewed: Yes Appearance: Ill-Appearing - chronically ill appearing. strong smell of cigar smoke evident. does not appear SOB. Vital Signs: Initial Vital Signs Temp 97.9 F 06/30/19 09:49 Pulse 69 06/30/19 09:49 Resp 36 06/30/19 09:49 BP 100/56 06/30/19 09:49 Pulse Ox 100 06/30/19 09:49 Eye Exam: Normal ENT Exam: Normal ENT: Negative: Pharyngeal erythema Respiratory Exam: Normal - not in any resp distress. leaning fwd. appears chroncially ill. Respiratory: Positive: No respiratory distress, No accessory muscle use, Decreased breath sounds Cardiovascular Exam: Normal Cardiovascular: Positive: RRR Abdominal Exam: Normal Musculoskeletal Exam: Normal Neurological Exam: Normal Psychological Exam: Normal Skin: Positive: Other - right upper back with mostly moved bandage leaving wound exposed. there is dark blood under bandage. no purulent dc. no surrounding erythema but there is bruising evident. cool to touch Course/Dx - Course Course Of Treatment: rt upper back wound s/p excision of cyst by derm (per pt). sutures ahev been removed. covering bandage has moved and pt was concerned about blood he saw on PJs and came in bc he is unable to see remy wound. -wound is not infected but appears to continue to heal. bandage was partly moved and not covering entire wound. -wound cleaned and bandaged w/ bacitracin and telfa. -f/u with derm in 2 days - Differential Diagnoses - Skin Complaint Differential Diagnoses: Cellulitis, Contact Dermatitis, Impetigo, Other - wound healing - Diagnoses Provider Diagnosis: Visit for wound check Discharge ED - Sign-Out/Discharge Documenting (check all that apply): Patient Departure All imaging exams completed and their final reports reviewed: No Studies - Discharge Plan Condition: Stable Disposition: HOME Patient Education Materials: Acute Wound Care (ED) Referrals: David Garcia MD [Primary Care Provider] - Additional Instructions: There is no evidence for infection but wound continues to heal. Please call the provider who did the original procedure for follow up on Tuesday - Billing Disposition and Condition Condition: STABLE Disposition: Home
== END 2019-06-30 10:55 | disposition home or self-care (01) ==
LOC: UCCORT 09:18
DX: Z48.817 Encounter for surgical aftercare following surgery on the skin and subcutaneous tissue (principal); J44.9 Chronic obstructive pulmonary disease, unspecified; I50.9 Heart failure, unspecified; F17.210 Nicotine dependence, cigarettes, uncomplicated; Z99.81 Dependence on supplemental oxygen
CPT/HCPCS: 99212; G0463